=== PATIENT | male | born 1995 | race Caucasian/White ===

== ENCOUNTER 2017-11-24 03:29 | Emergency (ER) | payer OTHER ==
[~2017-11-24] VITALS: Ht 165.1 cm; Wt 128.0 kg
[~2017-11-24 03:29] MED LIST: [UNRECOGNIZED DRUG - REMARK]
[2017-11-24 04:07] VITALS: BP 159/87
== END 2017-11-24 04:20 | disposition left against medical advice (07) ==
LOC: ER 03:41
DX: Z53.21 Procedure and treatment not carried out due to patient leaving prior to being seen by health care provider (principal)